=== PATIENT | female | born 1975 | race Caucasian/White ===

== ENCOUNTER 2016-12-28 16:30 | Outpatient (CLI) | payer OTHER | END 2016-12-28 16:31 | disposition home or self-care (01) | DX: M17.11 Unilateral primary osteoarthritis, right knee (principal); M25.461 Effusion, right knee; R60.0 Localized edema ==

== ENCOUNTER 2018-05-09 20:09 | Outpatient (CLI) | payer OTHER ==
--- NOTE | 2018-05-10 10:16 | Ultrasound Report ---
Procedure Date: 05/09/2018 Accession Number: [id number] / [id number] Procedure: US - Head or Neck Soft Tissue CPT Code: FULL RESULT: EXAM: Head or Neck Soft Tissue DATE: 05/09/2018 9:39 PM CLINICAL HISTORY: SORE THROAT COMPARISON: None. TECHNIQUE: Real time sonographic imaging of the soft tissues of the neck and thyroid was performed by the search marketing analyst. Multiple resources representative static images were saved for review. FINDINGS: Laterally in the right neck posterior to the internal jugular vein is a 0.4 cm echogenic focus with posterior shadowing suggestive of calcification which corresponds to the palpable region pointed out by the patient. This could represent a foreign body or heterotopic calcification. THYROID GLAND: Right Lobe: 5.3 x 1.3 x 1.9 cm. Heterogeneous echotexture. Right Lobe Nodules: None. Left Lobe: 5.1 x 1.4 x 1.8 cm. Heterogeneous echotexture. Left Lobe Nodules: 0.7 x 0.7 x 0.3 cm, heterogeneous with flow on color Doppler. Isthmus: 0.3 cm AP. Isthmic Nodules: None. LYMPH NODES: No adenopathy demonstrated in the central or lateral compartment. OTHER: None. IMPRESSION: 1. Calcific focus in the right neck posterior to the right internal jugular vein corresponds to a palpable area identified by the patient. Foreign body versus heterotopic calcification. 2. Small thyroid nodule, less than 1 cm. Given size and appearance of the nodule, FNA is not indicated at this time. Recommend annual follow-up ultrasound. Management recommendations are based on 2015 [place] [employer] Management Guidelines for Adult Patients with Thyroid Nodules and Differentiated Thyroid Cancer. RADIA
== END 2018-05-09 20:10 | disposition home or self-care (01) ==
LOC: DI 20:09
PROVIDERS: ATTEND Physician Assistant Medical
DX: R93.8 Abnormal findings on diagnostic imaging of other specified body structures (principal); E04.1 Nontoxic single thyroid nodule
CPT/HCPCS: 76536